=== PATIENT | female | born 1980 | race Caucasian/White ===

== ENCOUNTER 2023-10-28 08:13 | Emergency (ER) | payer BC, SELFPAY ==
[2023-10-28 08:18] VITALS: BP 163/99
--- NOTE | 2023-10-28 09:25 | ED.GENMED ---
History of Present Illness
General
Chief Complaint: Flank Pain
Source: patient
Exam Limitations: none
Time Seen by Provider: 10/28/23 09:09
Nursing documentation reviewed up to this point in time: agreed with
Travel History
Have you had any contact with someone who has COVID-19?: No
Do you have any symptoms of coronavirus? Fever > 100 degrees, chills, cough, shortness of breath, sore throat, loss of taste or smell, muscle aches, or headache?: No
History of Present Illness
History of Present Illness:
43-year-old female with a remote history of a kidney stone presents with right-sided back pain that started 3 nights ago as a small twinge and then got worse 2 days ago, is fairly constant with pain that wraps around her abdomen to her right upper
quadrant. Patient says if she lays on her left side she gets nauseated. She has pain with changing positions. She has had a little bit looser stool recently. She has not had any fever or chills, urinary symptoms, vomiting. Patient was last
menstrual was 2 weeks ago. She has been taking Tylenol for pain, last dose was 5 AM. She had trouble sleeping last night because the pain was so bad which is an 8 out of 10 currently. the pain is not made worse with breathing, she has no sob.
had a
Past History
Past History
ED Past Medical History: Other (Remote kidney stone)
ED Past Surgical History: None
Social History
Tobacco: Non-smoker
Alcohol: None
Drug: None
Personal:
Living: with family
Employment: Employed
Review of Systems
Review of Systems
Allergies reviewed?: Yes
All Other Systems: Not applicable
Phy Exam
Physical Exam
Physical Exam:
GENERAL: Alert, uncomfortable with movement but calm, cooperative
Neck: supple
CARDIAC: Regular rate and rhythm .no tachycardia, no edema, no LE tenderness/neg homans sign
LUNGS: Clear breath sounds bilaterally, no acute respiratory distress, no wheezes/rales/rhonchi
ABDOMEN: Soft, normal bowel sounds, nondistended, moderate right upper quadrant tenderness, no guarding, no rebound, neg alarcon's
back: no rash, no midline tenderness, some pain wth chanigng positoins
no cva tenderness
NEUROLOGICAL: Alert and oriented, no focal neuro deficits
SKIN: Warm and dry, skin intact.
PSYCH: Normal and appropriate interaction.
Course
Orders/Labs/Results
Orders:
Orders
10/28/23 09:23
0.9% Sodium Chloride 1000 ml [Nss] 1,000 ml IV BOLUS
Ketorolac [Toradol] 30 mg IV NOW STA
Ondansetron Injectable [Zofran] 4 mg IV NOW STA
Test Result ONCE
10/28/23 09:43
Complete Blood Count/With Diff Urgent
Comprehensive Metabolic Panel Urgent
HCG, Serum Qualitative Screen Urgent
Lipase Urgent
Urinalysis Reflex To Culture Urgent
Date Specimen was Collected: 10/28/23
Time Specimen was Collected: 09:36
10/28/23 10:33
CT Abd/Pel (IV only)-DH only Urgent
Comment:
Reason For Exam: right flank pain, tenderness;
10/28/23 11:54
CR Chest - 2 Views Urgent
Comment:
Reason For Exam: cough
Abnormal Lab Results
10/28/23
09:43
Eosinophils % 6.7 H %
(0-6)
Sodium 134 L mmol/L
(135-145)
10/28/23 09:43
10/28/23 09:43
Vital Signs
Initial and Last Documented VS:
Initial Vital Signs
Temp Pulse Resp BP Pulse Ox
98.1 F 95 20 163/99 100
10/28/23 08:18 10/28/23 08:18 10/28/23 08:18 10/28/23 08:18 10/28/23 08:18
Last Documented Vital Signs
Temp Pulse Resp BP Pulse Ox
98.3 F 81 16 144/83 100
10/28/23 13:13 10/28/23 13:13 10/28/23 13:13 10/28/23 13:13 10/28/23 13:13
MDM/Problems Addressed
Differential Diagnosis Includes:
Appendicitis, diverticulitis, colitis, cholecystitis or cholelithiasis, pneumonia
MDM/Problems Addressed:
43-year-old female with no problems presents for several days of constant right-sided back pain wrapping around to her right upper quadrant. It seems to be worse if she lays on 1 side and changing positions. It is not made worse with deep
breathing and she is not short of breath. She did have a URI several weeks ago and was treated with an antibiotic. She has had a little bit looser bowel movements overnight but had trouble sleeping. Tylenol she took at 5 AM does take the edge off
but it never goes away. She has not had any urinary symptoms. On exam the patient has no tachycardia, normal pulse ox, afebrile, looks uncomfortable with changing positions, no rash appreciated, tender to the right flank and right upper quadrant
but no tenderness to the right CVA region, with clear lungs, soft abdomen. Her laboratory studies are unremarkable with a normal white count and a negative urinalysis, normal LFTs. She was imaged with a CT scan with IV contrast which did not show
any acute causes for her pain. She did have mild/borderline splenomegaly. This could be related to her recent infection.
She was initially very apprehensive about taking Toradol, she does not like taking medications but ultimately agreed and the pain came down from 8 out of 10 to a 4 out of 10. I suspect this pain is musculoskeletal. I did do a chest x-ray which was
independently reviewed by me and negative for pneumonia. PERC neg, highly unlikely that this would be a PE based on her no tachycardia, normal pulse ox, no pleuritic pain, no shortness of breath, no risk factors. Case discussed with ED attending,
will discharge with NSAIDs and recommend follow-up with her family doctor, return precautions
*Critical Care Note
Total Time (30-74mins, 75-104mins- exclusive of procedures): Not Applicable
ED Attending Note
-
Portions of this chart may have been created with voice recognition software.� Occasional wrong word or��sound alike� substitutions may have occurred due to the inherent limitations of voice recognition software.
Discharge Plan
Departure
Patient Disposition: Home (Routine Discharge)
Date of Disposition: 10/28/23
Time of Disposition: 13:26
Patient with high blood pressure during this ER visit?: No
Condition: Fair
Covid-19: Not Applicable
Discharge Problem:
Flank pain
Instructions: Flank Pain (DC)
Prescriptions:
No Action
No Current Medications
0
Referrals:
Georgi Mandujano MD [Family Provider] - Follow up in 2-3 days
Stand Alone Forms: Return to Work
Activity Restrictions/Additional Instructions:
We are not entirely sure the cause of your pain, it is very reassuring that your blood work, chest x-ray, urine, CAT scan did not show any significant findings. Your spleen was borderline enlarged but there were no other changes, this is probably
related to your recent infection although you can monitor this with your family doctor. For now you can try taking Aleve or ibuprofen as directed in addition to the Tylenol that you have been using to help with pain which seems to be most likely
musculoskeletal in nature. Watch for rash, in case you get a development of a bumpy rash in your right flank this could be shingles and you would need additional treatment for that. Please also watch for any shortness of breath, worsening pain,
fever or chills, trouble breathing or trouble walking and return immediately for more testing.
Interventions
Interventions:
*Risk Screen - Suicide Last Done: 10/28/23 08:18
*General Assessment Last Done: 10/28/23 08:18
*Neglect/Abuse Screening Last Done: 10/28/23 08:18
ED- Fall Risk Assessment Last Done: 10/28/23 10:10
ME-Jesyxx-Ppnqchtojp Assessment Last Done: 10/28/23 10:08
ED-Female Genitourinary Assessment Last Done: 10/28/23 10:08
Discharge Date and Time
Print Language: UPPER SORBIAN
[2023-10-28] MEDS: NSS 1000 IV (09:41)
[2023-10-28 09:54] LABS: % Basophils 1.3 % (0-2); % Eosinophils 6.7 % (0-6); % Immature Granulocytes 0.3 % (0-0.5); % Lymphocytes 22.5 % (20.5-51.1); % Monocytes 6.1 % (1.7-9.3); % Neutrophils 63.1 % (42.2-75.2); Absolute Basophils 0.1 10^3/uL (0-0.2); Absolute Eosinophils 0.4 10^3/uL (0-0.7); Absolute Lymphocytes 1.4 10^3/uL (1.2-3.4); Absolute Monocytes 0.4 10^3/uL (0.1-0.6); Hematocrit 40.2 % (37.0-47.0); Hemoglobin 13.4 g/dL (12.0-16.0); Mean Corp Hgb Conc. 33.3 g/dL (33.0-37.0); Mean Corpuscular Hgb 28.6 pg (27.0-31.0); Mean Corpuscular Volume 85.9 fL (81.0-99.0); Mean Platelet Volume 8.5 fL (7.4-10.4); Nucleated Red Blood Cells % 0 %; Platelet Count 315 10^3/uL (130-400); Red Blood Cell Count 4.68 10^6/uL (4.20-5.40); Red Cell Dist. Width 12.1 % (11.5-14.5); White Blood Cell Count 6.3 10^3/uL (4.8-10.8)
[2023-10-28 10:28] LABS: HCG, Serum Qualitative Screen Negative
[2023-10-28 10:31] LABS: ALT (SGPT) 17 U/L (0-35); AST (SGOT) 20 U/L (14-36); Albumin 4.2 g/dl (3.5-5.0); Alkaline Phosphatase 69 U/L (38-126); Blood Urea Nitrogen 16 mg/dl (7-17); Calcium 9.3 mg/dl (8.4-10.2); Carbon Dioxide 26 mmol/L (22-30); Chloride 104 mmol/L (98-107); Glucose 93 mg/dl (70-99); Lipase 72 U/L (23-300); Potassium 4.1 mmol/L (3.5-5.1); Sodium 134 mmol/L (135-145); Total Bilirubin 0.5 mg/dl (0.2-1.3); Total Protein 6.9 g/dl (6.3-8.2); eGFR > 60.00
[2023-10-28 10:39] LABS: Urine Albumin Negative (Neg - Trace); Urine Bilirubin Negative (Negative); Urine Character Clear (Clear); Urine Color Yellow; Urine Glucose Negative (Negative); Urine Ketone Negative (Negative); Urine Leukocyte Negative (Negative); Urine Nitrite Negative (Negative); Urine Occult Blood Negative (Negative); Urine Specific Gravity 1.015 (<1.030); Urine Urobilinogen Negative (Neg - 1+)
[2023-10-28] MEDS: TORADOL 30 MG IV (11:29)
[2023-10-28 11:37] VITALS: BP 126/74
[2023-10-28 13:13] VITALS: BP 144/83
[2023-10-28 14:08] VITALS: BP 130/63
== END 2023-10-28 14:21 | disposition home or self-care (01) ==
LOC: EMR 08:13
PROVIDERS: Physician Assistant; EMERGENCY PHYSICIAN Emergency Medicine; FAMILY PHYSICIAN Family Medicine
DX: R10.9 Unspecified abdominal pain (principal); M54.9 Dorsalgia, unspecified
CPT/HCPCS: 99284; 96374; 96361; 71046; 74177; 80053; 81003; 83690; 84703; 85025; 93005; Q9967